=== PATIENT | female | born 1950 | race Caucasian/White ===

== ENCOUNTER 2016-08-30 22:29 | Inpatient (IN) | payer MEDICAID, MEDICARE ==
[2016-08-30] MEDS ORDERED: BABY ASPIRIN PO ONE (23:15)
[2016-08-30 23:42] LABS: Basophils % (Auto) 0.7 % (0.0-1.8); Eosinophils % (Auto) 3.2 % (0.0-4.3); Hematocrit 35.3 % (30.3-42.9); Hemoglobin 11.2 gm/dl (10.1-14.3); Mean Corpuscular HGB Conc 32 % (30-34); Mean Corpuscular Hemoglobin 26 pg (28-32); Mean Corpuscular Volume 82 fl (79-97); Platelet Count 190 K/mm3 (140-440); Red Blood Count 4.31 M/mm3 (3.65-5.03); White Blood Count 8.4 K/mm3 (4.5-11.0)
[2016-08-30 23:58] LABS: Anion Gap 13 mmol/L; Blood Urea Nitrogen 19 mg/dL (7-17); Calcium 9.1 mg/dL (8.4-10.2); Carbon Dioxide 29 mmol/L (22-30); Chloride 102.3 mmol/L (98-107); Glucose 141 mg/dL (65-100); Potassium 4.3 mmol/L (3.6-5.0); Sodium 140 mmol/L (137-145)
--- NOTE | 2016-08-31 04:02 | Emergency Department Report ---
ED Chest Pain HPI - General Chief Complaint: Chest Pain Stated Complaint: CHEST PAIN, BODY PAIN Time Seen by Provider: 08/31/16 03:54 Source: patient Mode of arrival: Ambulatory Limitations: No Limitations - History of Present Illness Initial Comments: This is a pleasant 66-year-old female who reports chest pain. I'm using the daughter for translation. The patient is a primary Macedonian speaker. Patient indicates approximately 2 hours prior to coming here. She, she developed central chest pain with radiation to her left arm and left scapular region. This pain lasted approximately 3 hours. She had some slight dyspnea associated with it. No nausea was reported. It did cause her to have mild headache as well. She states that pain resolved after about a hour of arriving here to the ED for a total of about 3 hours of pain. She did not take anything specifically because the pain to resolve. She denies history of chest pains in general. She denies having had a cardiac evaluation in the past. She does indicate that she takes a blood pressure medication. She has been out of this medication for about 7-10 days. She does not know what medication this is. She does not have a primary doctor. She has no chest pain at this time. She is still endorses mild frontal frontal headache. Denies any trauma denies any fevers. States she's that she's been eating and drinking well. During the time. She had her pain she reports nothing seems to change it as far as position or deep breathing. Severity scale (0 -10): 7 - Related Data Previous Rx's Medication Instructions Recorded Last Taken Type Lisinopril [Zestril TAB] 20 mg PO QDAY #30 tablet 08/20/13 Unknown Rx Allergies Allergy/AdvReac Type Severity Reaction Status Date / Time No Known Allergies Allergy Unverified 08/20/13 00:19 LATISHA score - Latisha Score Age > 65: (1) Yes Aspirin use within the Past 7 Days: (0) No 3 or more CAD Risk Factors: (0) No 2 or more Angina events in past 24 hrs: (0) No Known CAD with more than 50% Stenosis: (0) No Elevated Cardiac Markers: (0) No ST Deviation Greater than 0.5mm: (0) No LATISHA Score: 1 ED Review of Systems ROS: Stated complaint: CHEST PAIN, BODY PAIN Other details as noted in HPI Comment: All other systems reviewed and negative Constitutional: denies: chills, fever Eyes: denies: eye pain, eye discharge, vision change ENT: denies: ear pain, throat pain Respiratory: denies: cough, shortness of breath, wheezing Cardiovascular: chest pain. denies: palpitations Endocrine: no symptoms reported Gastrointestinal: denies: abdominal pain, nausea, diarrhea Genitourinary: denies: urgency, dysuria, discharge Musculoskeletal: denies: back pain, joint swelling, arthralgia Skin: denies: rash, lesions Neurological: headache. denies: weakness, paresthesias Psychiatric: denies: anxiety, depression Hematological/Lymphatic: denies: easy bleeding, easy bruising ED Past Medical Hx - Past Medical History Hx Hypertension: Yes - Surgical History Past Surgical History?: No - Social History Smoking Status: Never Smoker Substance Use Type: None - Medications Home Medications: Home Medications Medication Instructions Recorded Confirmed Last Taken Type Lisinopril [Zestril TAB] 20 mg PO QDAY #30 tablet 08/20/13 Unknown Rx ED Physical Exam - General Limitations: No Limitations General appearance: alert, in no apparent distress - Head Head exam: Present: atraumatic, normocephalic - Eye Eye exam: Present: normal appearance, EOMI. Absent: scleral icterus - ENT ENT exam: Present: normal exam, normal orophraynx, mucous membranes moist - Neck Neck exam: Present: normal inspection. Absent: tenderness, lymphadenopathy, thyromegaly - Respiratory Respiratory exam: Present: normal lung sounds bilaterally. Absent: respiratory distress, wheezes, rales - Cardiovascular Cardiovascular Exam: Present: regular rate, normal rhythm. Absent: systolic murmur, diastolic murmur, rubs, gallop - GI/Abdominal GI/Abdominal exam: Present: soft, normal bowel sounds. Absent: distended, tenderness, guarding - Extremities Exam Extremities exam: Present: normal inspection, pedal edema (trace bilaterally. Equal distal pedal pulses bilaterally. Equal distal radial pulses bilaterally.) - Back Exam Back exam: Present: normal inspection. Absent: tenderness, CVA tenderness (R), CVA tenderness (L) - Neurological Exam Neurological exam: Present: alert, oriented X3 - Psychiatric Psychiatric exam: Present: normal affect, normal mood - Skin Skin exam: Present: warm, dry, intact, normal color. Absent: rash ED Course Vital Signs 08/30/16 08/31/16 08/31/16 23:05 04:13 04:20 Temperature 98.5 F Pulse Rate 96 H 74 71 Respiratory 18 15 14 Rate Blood Pressure 202/108 188/80 Blood Pressure 202/108 [Left] O2 Sat by Pulse 98 100 100 Oximetry 08/31/16 04:26 Temperature Pulse Rate Respiratory Rate Blood Pressure 188/80 Blood Pressure [Left] O2 Sat by Pulse Oximetry - Reevaluation(s) Reevaluation #1: 08/31/16 03:56 ECG with normal sinus rhythm at 90 bpm with normal IL and QRS. Isoelectric. LVH is noted. Some nonspecific ST-T wave abnormalities are noted. No STEMI. Unchanged from prior ECG from 08/20/2013 Reevaluation #2: 08/31/16 04:24 ECG here is nondiagnostic. There is some nonspecific findings but no reciprocal is appreciated this is not an acute injury pattern ECG. Patient's story does sound suspicious and consistent with potential cardiac etiology chest pain. She has none at this time. I did give her an aspirin. Her blood pressure is noted to be quite elevated here. I did give nitroglycerin to the chest to try to alleviate and improve this. Patient was noted to have cmg on cxr chest x-ray. Pain is not reproducible for me here. Frankly she has no pain right now. I did discuss with the patient the options of follow-up with cardiology as an outpatient for further stressing versus staying in the hospital for stress testing. Patient prefers to stay in the hospital. I feel this is reasonable given her age and some risk factors. She is noted be quite hypertensive as well. SHe is chest pain-free at this time. Hospital is contacted for admission. 08/31/16 04:32 08/31/16 04:33 ED Medical Decision Making - Lab Data Result diagrams: 08/30/16 23:32 08/30/16 23:32 - Radiology Data interpreted by me: Cardiomegaly. Otherwise unremarkable. Critical care attestation.: If time is entered above; I have spent that time in minutes in the direct care of this critically ill patient, excluding procedure time. ED Disposition Clinical Impression: Hyperglycemia Chest pain Qualifiers: Chest pain type: precordial chest pain Qualified Code(s): R07.2 - Precordial pain Hypertension Qualifiers: Hypertension type: essential hypertension Qualified Code(s): I10 - Essential ( primary) hypertension Disposition: OP ADMITTED IP TO THIS HOSP Is pt being admited?: Yes Does the pt Need Aspirin: No Condition: Stable Instructions: Chest Pain (ED), Hypertension (ED) Referrals: PRIMARY CARE, [Primary Care Provider] - 3-5 Days Time of Disposition: 04:27
[2016-08-31] MEDS ORDERED: ASPIRIN PO ONE (04:05)
[2016-08-31] MEDS ORDERED: NITRO-BID 2% TP ONE (04:05)
[2016-08-31] MEDS ORDERED: PERCOCET 5/325 PO PRN (05:02)
[2016-08-31] MEDS ORDERED: SODIUM CHLORIDE FLUSH SYRINGE 10 ML IV PRN (05:02)
[2016-08-31] MEDS ORDERED: ZOFRAN IV PRN (05:02)
[2016-08-31] MEDS ORDERED: TYLENOL PO PRN (05:02)
[2016-08-31] MEDS ORDERED: MILK OF MAGNESIA PO PRN (05:02)
[2016-08-31] MEDS ORDERED: DULCOLAX PR PRN (05:02)
[2016-08-31] MEDS ORDERED: APRESOLINE IV PRN (05:02)
--- NOTE | 2016-08-31 05:12 | History and Physical Report ---
History of Present Illness Date of examination: 08/31/16 History of present illness: 66 -year-old man with a history of hypertension, ran out of her medication a week ago comes emergency room with complains of chest pain. Pain is in the epigastric area which she describes a sharp pain, intermittent in nature lasting for 5 seconds, intensity 4/10, radiating to the left shoulder and neck, she cannot identify exacerbating or relieving factors. Denies nausea vomiting, shortness breath, diaphoresis or palpitation. Complaining of headache Patient denies cough, abdominal pain, hematochezia, dysuria, frequency, focal weakness, dysarthria, fever chills, polydipsia polyuria, hot or cold intolerance , easy bruisability, or rash or bleeding from mucosal membrane, rhinorrhea, epistaxis, earache, tinnitus, blurry vision, eye discharge, anxiety, depression. Other review of systems negative PAST SURGICAL HISTORY:none SOCIAL HISTORY:Denies alcohol, tobacco, drugs FAMILY HISTORY:Hypertension Medications and Allergies Allergies Allergy/AdvReac Type Severity Reaction Status Date / Time No Known Allergies Allergy Unverified 08/20/13 00:19 Home Medications Medication Instructions Recorded Confirmed Last Taken Type Lisinopril [Zestril TAB] 20 mg PO QDAY #30 tablet 08/20/13 Unknown Rx Active Meds: Active Medications Hydralazine HCl (Apresoline) 5 mg IV Q6HR PRN PRN Reason: Hypertension Exam - Physical Exam Narrative exam: Gen. appearance: Patient lying in bed, no apparent distress HEENT: Normocephalic, atraumatic, pupils equally round and reactive to light, extraocular movement intact, and no sclericterus,. No JVD or thyromegaly or nodule,neck supple, no carotid bruit ,mucous membranes moist, no exudate or erythema Heart: S1, S2, regular rate and rhythm Lungs: Clear to auscultation bilaterally, breathing comfortable Abdomen: Positive bowel sounds, nontender, nondistended, no organomegaly Extremity: No edema, cyanosis, clubbing Skin: No rash, nodules, warm, dry Neuro: Oriented 3, cranial nerves II-12 intact, speech is fluent, motor and sensory intact - Constitutional Vitals: Temp Pulse Resp BP Pulse Ox 98.5 F 72 11 L 177/70 100 08/30/16 23:05 08/31/16 04:30 08/31/16 04:30 08/31/16 04:30 08/31/16 04:30 Results - Labs CBC & Chem 7: 08/30/16 23:32 08/30/16 23:32 Labs: Abnormal lab results 08/30/16 08/30/16 Range/Units 23:32 23:32 MCH 26 L (28-32) pg Seg Neutrophils % 71.1 H (40.0-70.0) % BUN 19 H (7-17) mg/dL Creatinine 0.5 L (0.7-1.2) mg/dL Glucose 141 H (65-100) mg/dL - Imaging and Cardiology EKG: image reviewed Chest x-ray: image reviewed Assessment and Plan Hypertensive urgency Chest pain most secondary to #1 Hypertension Admit to medicine Check CAT scan of the head, cardiac enzymes, lipid profile and obtain a stress test Start IV hydralazine as needed for blood pressure control Restart outpatient medications, DVT prophylaxis
--- NOTE | 2016-08-31 05:41 | Cat Scan Report ---
FINAL REPORT PROCEDURE: CT HEAD/BRAIN WO CON TECHNIQUE: Computerized tomography of the head was performed without contrast material. HISTORY: sinha COMPARISON: No prior studies are available for comparison. FINDINGS: Skull and scalp: Normal. Paranasal sinuses: Normal. Ventricles and subarachnoid spaces: Normal. Cerebrum: No evidence of hemorrhage, acute infarction or mass . Cerebellum and brainstem: No evidence of hemorrhage, acute infarction or mass. Vasculature: Normal. Comments: None. IMPRESSION: There is no evidence of an acute intracranial process
[2016-08-31 08:09] LABS: Creatine Kinase MB 1.8 ng/mL (0.0-4.0)
[2016-08-31] MEDS ORDERED: LEXISCAN IV ONE ×2 (08:13→09:06)
--- NOTE | 2016-08-31 09:43 | XRay Report ---
AP CHEST: HISTORY: chest pain AP view of the chest demonstrates a normal mediastinal and cardiac contour with clear lungs and normal bony and soft tissue structures. IMPRESSION: No acute cardiopulmonary process appreciated.
[2016-08-31] MEDS ORDERED: LOVENOX SUB-Q SCH (10:00)
--- NOTE | 2016-08-31 10:47 | Discharge Summary ---
Providers - Providers Date of Admission: 08/31/16 05:02 Date of discharge: 08/31/16 Attending physician: NAI STAUFFER MD Primary care physician: SOCIAL SERVICE ASSISTANT Hospitalization Reason for admission: HTN Condition: Stable Hospital course: 66 -year-old man with a history of hypertension, ran out of her medication a week ago comes emergency room with complains of chest pain. Pain is in the epigastric area which she describes a sharp pain, intermittent in nature lasting for 5 seconds, intensity 4/10, radiating to the left shoulder and neck, she cannot identify exacerbating or relieving factors. Denies nausea vomiting, shortness breath, diaphoresis or palpitation. Complaining of headache Patient denies cough, abdominal pain, hematochezia, dysuria, frequency, focal weakness, dysarthria, fever chills, polydipsia polyuria, hot or cold intolerance , easy bruisability, or rash or bleeding from mucosal membrane, rhinorrhea, epistaxis, earache, tinnitus, blurry vision, eye discharge, anxiety, depression. Other review of systems negative. prior to admission the pain resolved. Patient was restarted on BP meds, was also noted to have elevated Lipid profile and started on statin with counselling on medication side effects. Discussed with family AND patient and recommend keeping a bp diary. Patient had a stress test and was negative * Atypical chest pain, likely costochondiritis * dyslipidemia * morbid obesity Disposition: DISCHARGED TO HOME OR SELFCARE Time spent for discharge: 35 MINS Core Measure Documentation - Palliative Care Palliative Care/ Comfort Measures: Not Applicable - Core Measures Any of the following diagnoses?: none - VTE Discharge Requirements Deep Vein Thrombosis/Pulmonary Embolism Present on Admission: No Exam - Physical Exam Narrative exam: VITAL SIGNS: Reviewed. GENERAL: The patient appeared well nourished and normally developed. Vital signs as documented. HEAD: No signs of head trauma. EYES: Pupils are equal. Extraocular motions intact. EARS: Hearing grossly intact. MOUTH: Oropharynx is normal. NECK: No adenopathy, no JVD. CHEST: Chest with clear breath sounds bilaterally. No wheezes, rales, or rhonchi. CARDIAC: Regular rate and rhythm. S1 and S2, without murmurs, gallops, or rubs. VASCULAR: No Edema. Peripheral pulses normal and equal in all extremities. ABDOMEN: Soft, without detectable tenderness. No sign of distention. No rebound or guarding, and no masses palpated. Bowel Sounds normal. MUSCULOSKELETAL: Good range of motion of all major joints. Extremities without clubbing, cyanosis or edema. NEUROLOGIC EXAM: Alert and oriented x 3. No focal sensory or strength deficits. Speech normal. Follows commands. PSYCHIATRIC: Mood normal. SKIN: No rash or lesions. - Constitutional Vitals: Temp Pulse Resp BP Pulse Ox 97.6 F 83 20 162/69 97 08/31/16 08:00 08/31/16 08:00 08/31/16 08:00 08/31/16 08:00 08/31/16 08:00 Plan Activity: advance as tolerated, fall precautions Diet: low fat Special Instructions: record daily weights, record daily BP diary Follow up with: PRIMARY CARE, [Primary Care Provider] - 3-5 Days Prescriptions: Simvastatin [Zocor TAB] 40 mg PO QHS #30 tablet Lisinopril [Zestril TAB] 20 mg PO QDAY #30 tablet
[2016-08-31] MEDS ORDERED: ZOFRAN ONE (11:08)
[2016-08-31 11:56] VITALS: BP 184/92
[2016-08-31] MEDS ORDERED: PNEUMOVAX 23 IM ONE (12:00)
[2016-08-31 12:55] LABS: Alanine Aminotransferase 12 units/L (7-56); Albumin 3.8 g/dL (3.9-5); Alkaline Phosphatase 99 units/L (35-129); Bilirubin,Total 0.5 mg/dL (0.1-1.2); Total Protein 7.6 g/dL (6.3-8.2)
[2016-08-31 13:00] LABS: Bilirubin,Direct < 0.2 mg/dL (0-0.2); Bilirubin,Indirect 0.3 mg/dL
--- NOTE | 2016-08-31 14:37 | Treadmill Report ---
THALLIUM STRESS TEST LEFT VENTRICLE: Left ventricular chamber size is within normal. Perfusion study demonstrates homogeneous uptake of the tracer in all segments. No significant perfusion defects identified. Gated analysis demonstrates normal left ventricular systolic function, ejection fraction 73%. CONCLUSION: Normal myocardial perfusion study. JOB# [id number] CA/NTS
[2016-08-31] MEDS ORDERED: ZESTRIL PO SCH (16:43)
== END 2016-08-31 14:30 | disposition home or self-care (01) | DRG 206 ==
LOC: ED 22:29 → 4A 08-31 05:02
PROVIDERS: ADMIT Internal Medicine; ATTEND Internal Medicine
DX: M94.0 Chondrocostal junction syndrome [Tietze] (principal); I16.0 Hypertensive urgency; E78.5 Hyperlipidemia, unspecified; E66.01 Morbid (severe) obesity due to excess calories; I10 Essential (primary) hypertension; R73.9 Hyperglycemia, unspecified; Z68.39 Body mass index [BMI] 39.0-39.9, adult
CPT/HCPCS: 36415; 70450; 71010; 78452; 80048; 80061; 80074; 82550; 82553; 84484; 85025; 90732; 93005; 93010; 93017; 96374; A9502; J0360; J1650; J2405; J2785